=== PATIENT | female | born 2000 | race Caucasian/White ===

== ENCOUNTER 2023-10-15 03:54 | Emergency (ER) | payer SELFPAY ==
[2023-10-15 03:58] VITALS: BP 131/96
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
== END 2023-10-15 08:32 | disposition home or self-care (01) ==
LOC: EMR 03:54
PROVIDERS: EMERGENCY PHYSICIAN Student in an Organized Health Care Education/Training Program
DX: S40.029A Contusion of unspecified upper arm, initial encounter (principal); S20.20XA Contusion of thorax, unspecified, initial encounter; S70.10XA Contusion of unspecified thigh, initial encounter; S00.83XA Contusion of other part of head, initial encounter; Y04.8XXA Assault by other bodily force, initial encounter
CPT/HCPCS: 99284; 70496; 70498; 71046; 73030; 73552; Q9967